=== PATIENT | male | born 1970 | race Caucasian/White ===

== ENCOUNTER 2021-07-03 14:46 | Outpatient (CLI) | payer BC, SELFPAY ==
--- NOTE | ~2021-07-03 | US_ITS ---
EXAMINATION: US renal BI EXAM DATE: 07/03/2021 15:41 INDICATION: R82.998 - Other abnormal findings in urine. TECHNIQUE: Multiple grayscale and Doppler images of the kidneys were obtained (by a technologist who performed the scan) and subsequently reviewed. There is no prior study for comparison. FINDINGS: Right kidney: There is normal contour and echogenicity. It measures 13.5 x 6.5 x 5.8 centimeters. Th ere is a cyst measuring 3 cm in the lower pole. There is no hydronephrosis. Left kidney: There is normal contour and echogenicity. It measures 13.7 x 6.5 x 5.7 centimeters. Hyp oechoic region, could be hemorrhagic cyst but can't confirm on this study. There is no hydronephros is. Bladder unremarkable. IMPRESSION: Right renal cyst. Left renal lesion which could be hemorrhagic cyst but can't confirm on this exam. Consider follow-up CT or MRI with contrast if no prior study available. Reviewed, dictated and finalized at location G. L DEVELOPER
== END 2021-07-03 14:47 | disposition home or self-care (01) ==
PROVIDERS: PCP Family Medicine; Visit Provider Family Medicine
DX: R82.998 Other abnormal findings in urine (principal); I10 Essential (primary) hypertension; N28.1 Cyst of kidney, acquired; N28.9 Disorder of kidney and ureter, unspecified
CPT/HCPCS: 76775

== ENCOUNTER → 2021-07-18 15:41 | Outpatient (CLI) | payer BC, SELFPAY ==
--- NOTE | ~2021-07-18 | MR_ITS ---
EXAMINATION: MR renal wo con INDICATION: Indeterminate left kidney mass on recent ultrasound TECHNIQUE: Coronal SSFSE ARC, WATER:coronal LAVA-FLEX, Coronal 2D FIESTA FatSat, Axial SSFSE BH ARC, Axial 3D DualEcho BH, Axial SSFSE-IR, Axial DWI b=500, Axial 2D FIESTA FatSat, Axial LAVA ARC, Pike l In and Opposed phase LAVA FLEX COMPARISON: Ultrasound, 07/03/2021 CONTRAST: None FINDINGS: The liver, spleen pancreas, and adrenal glands are normal. There are multiple stones in the nondistended gallbladder. There is a 4.1 cm simple cyst in the right kidney lower pole. There is a 2 .3 cm T1 isointense, mildly T2 hyperintense mass of the left kidney lower pole. A 1.1 cm mass with si milar signal characteristics is seen in the posteromedial aspect of the left kidney upper pole. There are no pathologically enlarged abdominal lymph nodes. No dilated loops of bowel are identified. IMPRESSION: 1. Possible proteinaceous cysts of the left kidney. Complete characterization is limited by the absen ce of intravenous contrast. CT or MRI without and with contrast is recommended. Reviewed, dictated and finalized at location A. RUMENTATION FITTER IMPRESSION: 1. Possible proteinaceous cysts of the left kidney. Complete characterization i s limited by the absence of intravenous contrast. CT or MRI without and with co ntrast is recommended.
== END ==
PROVIDERS: PCP Family Medicine; Visit Provider Family Medicine
DX: N28.89 Other specified disorders of kidney and ureter (principal)
CPT/HCPCS: 74181

== ENCOUNTER → 2021-08-01 14:25 | Outpatient (CLI) | payer BC, SELFPAY ==
--- NOTE | ~2021-08-01 | CT_ITS ---
EXAMINATION: CT abdomen wo/w con DATE: 08/01/2021 15:01 INDICATION: Renal masses TECHNIQUE: Computed tomography (CT) of the abdomen was performed without and subsequently with 100 CC Omnipaque 350 intravenous contrast. Automated exposure control and iterative reconstruction techniqu e were employed. Exam dose: 1482.76 mGy-cm total exam DLP. COMPARISON: July 18, 2021 MRI renal examination FINDINGS: Right kidney: Anterior upper pole exophytic 10 mm lesion with precontrast attenuation of 26.5 Hounsfield units and postcontrast attenuation of 33.6 Hounsfield units. Lower pole anteromedial exophytic 1.3 cm lesion with precontrast attenuation of 14.5 Hounsfield units and postattenuation of 22 Hounsfield units. Lower pole 3.5 cm circumscribed lesion with precontrast and post contrast attenuation of 6 Hounsfield units, consistent with cyst Left kidney: 12 mm posterior upper pole exophytic lesion with pre- and postcontrast attenuation of 27.6, 754.1 Amber nsfield units Posterior lower pole 1.9 cm lesion with pre- and postcontrast attenuation of 24.4 and 29.2 Hounsfield units 4 mm middle lobe nodule (series 4 image 2). The lung bases are clear of infiltrate or consolidation. Normal heart size. No pericardial or pleural effusion. Multiple gallstones. No hepatic, splenic, pancreatic, and adrenal space-occupying mass lesion. No roland e duct or pancreatic duct dilatation. Normal caliber of the abdominal aorta. No intraperitoneal or retroperitoneal mass lesion or adenopath y or ascites. There is diverticulosis of the left colon; no CT evidence of diverticulosis. Normal appendix. No jeaneth l obstruction or intraperitoneal free air. Small fat-containing umbilical hernia and adjacent left periumbilical 2.1 x 2.8 cm fat-containing her tatyana. Bilateral L5 pars interarticularis defects with grade 1 anterolisthesis at L5-S1. Moderately severe degenerative disc disease at L4-5 and L5-S1. Moderate degenerative disc disease and mild retrolisthesis at L3-4. IMPRESSION: Bilateral renal masses; recommend [address] follow-up with and without IV contrast mate rial Reviewed, dictated and finalized at Location A. Reviewed, dictated and finalized at location A. ECTOR [employer]AT IMPRESSION: Bilateral renal masses; recommend [address] follow-up with and wi thout IV contrast material
[2021-08-01 14:49] LABS: Estimated Glomerular Filt Rate > 60
== END ==
PROVIDERS: PCP Family Medicine; Visit Provider Family Medicine
DX: N28.89 Other specified disorders of kidney and ureter (principal)
CPT/HCPCS: 74170; Q9967

== ENCOUNTER → 2021-10-11 14:42 | Outpatient (CLI) | payer BC, SELFPAY ==
--- NOTE | ~2021-10-11 | MR_ITS ---
EXAMINATION: MR abdomen wo/w con DATE: 10/11/2021 15:54 INDICATION: Neoplasm of uncertain behavior of left kidney. TECHNIQUE: Magnetic resonance imaging (MRI) of the abdomen was performed without and with 20 mL Multi Rolando intravenous contrast. Sequences included coronal T2-weighted FS FSE, coronal and axial FIESTA F S, coronal LAVA-flex, axial LAVA, axial T2-weighted FSE, axial T1-weighted dual-echo FSPGR, axial STI R FSE, and axial DWI. Postcontrast sequences included coronal LAVA-flex and a time course of axial LA VA. COMPARISON: Abdomen MRI 07/18/2021, CT abdomen and pelvis 08/01/2021, ultrasound 07/03/2021 FINDINGS: The liver is normal. There are gallstones in the gallbladder, which is normal in size. The spleen, pa ncreas, and adrenal glands are normal. There are cysts in the kidneys measuring up to 3.9 cm on the r ight. There are hemorrhagic cysts in the kidneys measuring up to 2.0 cm on the left. There are no dil ated loops of bowel. There are no pathologically enlarged lymph nodes. There is no free intraperitone al fluid. IMPRESSION: 1. Benign cysts in the kidneys. Reviewed, dictated and finalized at location A.
[2021-10-11 15:12] LABS: Estimated Glomerular Filt Rate > 60
== END ==
PROVIDERS: PCP Family Medicine; Visit Provider Urology
DX: D41.02 Neoplasm of uncertain behavior of left kidney (principal); N28.1 Cyst of kidney, acquired
CPT/HCPCS: 74183; A9577

== ENCOUNTER 2022-03-05 01:14 | Day surgery (SDC) | payer BC, SELFPAY ==
[2022-02-20 08:26] VITALS: BMI 32.1
[2022-03-05 12:30] VITALS: BP 139/79; PULSE 67; RESP 18; TEMP 36.4; O2SAT 100; BMI 31.5
[2022-03-05] MEDS: LACTATED RINGERS 1,000 ML 150 ML IV CONT (12:33)
--- NOTE | 2022-03-05 12:44 | WPDANESEPPF ---
Anes - Initial Pre Proc Eval Procedure: Operation Date: 03/05/22 13:00 Proposed Procedures p Screening Colonoscopy - Pete Hernandez MD Date/Time: 03/05/22 12:44 Surgeon: Pete Hernandez MD Pre Op Diagnosis: neoplasm screening Patient Data Age: 52 Gender: M Height: 1.88 m Weight: 111.3 kg Last Vital Signs Temp 97.6 F 03/05/22 12:30 Pulse 67 03/05/22 12:30 Resp 18 03/05/22 12:30 BP 139/79 03/05/22 12:30 Pulse Ox 100 03/05/22 12:30 O2 Del Method Room Air 03/05/22 12:30 Allergies Allergy/AdvReac Type Severity Reaction Status Date / Time No Known Allergies Allergy Verified 03/05/22 12:28 Home Medications Medication Instructions Recorded Confirmed Type losartan 50 mg tablet 50 mg PO DAILY #90 tabs 06/06/21 02/20/22 Rx cholecalciferol (vitamin D3) 25 25 mcg PO DAILY 02/20/22 02/20/22 History mcg (1,000 unit) tablet (Vitamin D3) hydrochlorothiazide 25 mg tablet 25 mg PO DAILY 02/20/22 02/20/22 History multivitamin with minerals-folic 1 tablet PO DAILY 02/20/22 02/20/22 History acid 0.4 mg tablet Patient hx anesthesia problems: none Family hx anesthesia problems: none Results Review: All pre-operative results and documents have been reviewed as part of the pre-operative evaluation. FOR[facility]LY [facility] Past Medical History Medical History Eustachian tube dysfunction GERD without esophagitis Family History Family History Father Hypertension Mother Hypertension Grandparent Family history of malignant melanoma Social History Social History Smoking status: Former smoker Tobacco type: cigarettes Alcohol intake: current Drinks per week: 13 Substance use type: does not use Living arrangements: with family Spiritual care concerns: No Anes - Eval Final PreProcedure Day of Procedure 03/05/22 12:44 Patient weight: obese Heart: regular rate and rhythm Lungs: clear to auscultation Airway: Mallampati scale class II Neurological: alert and oriented Last oral intake: >/= 8 hours ASA classification: II Emergent: no Anesthetic plan: proceed Anesthesia type and monitoring: general GIVS and standard monitoring Results Review: All pre-operative results and documents have been reviewed as part of the pre-operative evaluation. Informed Consent: The patient's anesthetic plan and its attendant risks and benefits were discussed with the patient/family/POA. Questions were solicited and answers provided to the satisfaction of the patient/family/POA.
--- NOTE | 2022-03-05 13:09 | P.HP_ITS ---
History of Present Illness History of Present Illness Consent: Risks, benefits, and alternatives have been discussed and questions answered. Patient agrees to proceed with procedure. Chief complaint: neoplasm screening Narrative: Tigre Zapien is a 52 year old male Presents for screening colonoscopy. Patient's current weight appetite and bowel movements are normal. Patient denies abdominal pain. He has had no bleeding. Family history is noncontributory. Review of Systems Review of Systems: Review of systems noncontributory. COUNTS INCLUDE 234 BEDS AT THE [facility] Past Medical History Medical History Eustachian tube dysfunction GERD without esophagitis Family History Family History Father Hypertension Mother Hypertension Grandparent Family history of malignant melanoma Social History Social History Smoking status: Former smoker Tobacco type: cigarettes Alcohol intake: current Drinks per week: 13 Substance use type: does not use Living arrangements: with family Spiritual care concerns: No Meds Home Medications and Allergies Home Medications Medication Instructions Recorded Confirmed Type losartan 50 mg tablet 50 mg PO DAILY #90 tabs 06/06/21 02/20/22 Rx cholecalciferol (vitamin D3) 25 25 mcg PO DAILY 02/20/22 02/20/22 History mcg (1,000 unit) tablet (Vitamin D3) hydrochlorothiazide 25 mg tablet 25 mg PO DAILY 02/20/22 02/20/22 History multivitamin with minerals-folic 1 tablet PO DAILY 02/20/22 02/20/22 History acid 0.4 mg tablet Allergies Allergy/AdvReac Type Severity Reaction Status Date / Time No Known Allergies Allergy Verified 03/05/22 12:28 Vital Signs Vital Signs - 24 hr 03/05/22 12:30 Temperature 97.6 F Pulse Rate 67 Respiratory Rate 18 Blood Pressure 139/79 Pulse Oximetry 100 Oxygen Delivery Room Air Exam Narrative: Physical exam reveals patient to be alert. Vital signs stable. HEENT exam is unremarkable. Patient is anicteric. Lungs are clear to auscultation and percussion. Heart is without murmur or extra sounds. Abdomen bowel sounds are present soft nontender with no hepatosplenomegaly. Digital external rectal exam normal. Assessment and Plan Assessment and plan (1) Encounter for screening colonoscopy: Code(s): Z12.11 - Encounter for screening for malignant neoplasm of colon Status: Acute Assessment and Plan: Patient presents for screening colonoscopy. Appears to be at average risk for colon polyps.
[2022-03-05 13:32] VITALS: BP 110/56; PULSE 61; RESP 19; O2SAT 98
[2022-03-05 13:42] VITALS: BP 113/82; PULSE 67; RESP 25; O2SAT 97
[2022-03-05 13:52] VITALS: BP 120/67; PULSE 62; RESP 20; O2SAT 100
== END 2022-03-05 14:01 | disposition home or self-care (01) ==
PROVIDERS: PCP Family Medicine; Visit Provider Internal Medicine Gastroenterology
PROC: 0DJD8ZZ Inspection of Lower Intestinal Tract, Via Natural or Artificial Opening Endoscopic (ICD-10-PCS; CPT 45378; principal; 2022-03-05 13:00)
DX: Z12.11 Encounter for screening for malignant neoplasm of colon (principal); K57.30 Diverticulosis of large intestine without perforation or abscess without bleeding; K64.8 Other hemorrhoids; K21.9 Gastro-esophageal reflux disease without esophagitis; Z87.891 Personal history of nicotine dependence; E66.9 Obesity, unspecified; Z68.31 Body mass index [BMI] 31.0-31.9, adult
CPT/HCPCS: 45378; J2704; J7120

== ENCOUNTER 2022-07-31 09:00 | Outpatient (CLI) | payer BC, SELFPAY ==
[2022-08-01 01:05] LABS: Kit Draw Collected
== END 2022-07-31 09:01 | disposition home or self-care (01) ==
LOC: ANHGOSHLAB 09:02
PROVIDERS: PCP Family Medicine; Visit Provider Clinical Nurse Specialist
DX: I10 Essential (primary) hypertension (principal); E78.2 Mixed hyperlipidemia; E55.9 Vitamin D deficiency, unspecified; Z12.5 Encounter for screening for malignant neoplasm of prostate
CPT/HCPCS: 36415

== ENCOUNTER 2023-08-13 11:10 | Outpatient (CLI) | payer BC, SELFPAY ==
[2023-08-13 19:31] LABS: Alanine Aminotransferase 43 U/L (6-50); Albumin Level 4.1 g/dL (3.5-5.1); Alkaline Phosphatase 70 U/L (38-126); Anion Gap 3 mmol/L (8-16); Aspartate Amino Transferase 46 U/L (17-59); Bilirubin,Total 0.7 mg/dL (0.2-1.3); Blood Urea Nitrogen 15 mg/dL (9-20); Calcium 8.9 mg/dL (8.4-10.2); Carbon Dioxide 32 mmol/L (22-30); Chloride 101 mmol/L (98-107); Cholesterol 177 mg/dL (0-200); Estimated Glomerular Filt Rate > 60; Glucose 99 mg/dL (65-110); HDL Direct 40 mg/dL; Potassium 3.7 mmol/L (3.4-5.0); Sodium 136 mmol/L (137-145); Triglycerides 123 mg/dL (<150)
[2023-08-13 19:40] LABS: Vitamin D 25 Hydroxy 59.5 ng/mL
[2023-08-13 19:42] LABS: LDL Cholesterol Direct 120 mg/dL
[2023-08-13 20:04] LABS: Hepatitis C Virus Antibody Negative (Negative)
== END 2023-08-13 11:11 | disposition home or self-care (01) ==
LOC: ANHGOSHLAB 11:11
PROVIDERS: PCP Family Medicine; Visit Provider Family Medicine
DX: I10 Essential (primary) hypertension (principal); E55.9 Vitamin D deficiency, unspecified; Z11.59 Encounter for screening for other viral diseases; N28.1 Cyst of kidney, acquired; Z20.828 Contact with and (suspected) exposure to other viral communicable diseases
CPT/HCPCS: 36415; 80053; 80061; 82306; 86803